=== PATIENT | female | born 1985 | race Caucasian/White ===

== ENCOUNTER 2019-11-13 10:48 | Emergency (ER) | payer OTHER, SELFPAY ==
--- NOTE | ~2019-11-13 | XR_ITS ---
XR knee LT 3V DATE: 11/13/2019 11:58 INDICATION: Anterior knee pain after running TECHNIQUE: 3 views including crosstable lateral COMPARISON: None FINDINGS: No fracture or dislocation or joint effusion. No periosteal reaction or bone destruction. N o radiopaque intra-articular loose body or chondrocalcinosis. Joint spaces are preserved. IMPRESSION: Negative Reviewed, dictated and finalized at location B. [facility] IMPRESSION: Negative
[2019-11-13 11:09] VITALS: BP 118/68; PULSE 97; RESP 14; TEMP 36.9; O2SAT 98
[2019-11-13] MEDS: IBUPROFEN 600 MG TABLET PO (12:04)
--- NOTE | 2019-11-13 12:19 | ED.LOWEXIN ---
HPI - Extremity Injury (Lower) General Chief Complaint: Extremity Injury, Lower <Vinicius Osborn PA-C - Last Filed: 11/13/19 12:26> Stated Complaint: l knee/thigh injury <JYOTI Dolan Last Filed: 11/13/19 12:26> Time Seen by Provider: 11/13/19 11:04 <Vinicius Osborn PA-C - Last Filed: 11/13/19 12:26> Source: patient <Vinicius Osborn PA-C - Last Filed: 11/13/19 12:26> Mode of arrival: ambulatory <JYOTI Dolan Last Filed: 11/13/19 12:26> Limitations: no limitations <Vinicius Osborn PA-C - Last Filed: 11/13/19 12:26> History of Present Illness HPI Narrative: Patient is a 34-year-old female who presents with left lower extremity pain noting that she was ambulating when she felt a pop around the level of the knee and has since moderate aching pain worse with activity and movement patient denies similar occurrence in the past presents per private vehicle in no distress. Pain radiates up into the thigh anteriorly <Vinicius Osborn PA-C - Last Filed: 11/13/19 12:26> Related Data Home Medications: Home Medications Medication Instructions Recorded Confirmed hydroxychloroquine 11/13/19 <JYOTI Dolan Last Filed: 11/13/19 12:26> Allergies/Adverse Reactions: Allergies Allergy/AdvReac Type Severity Reaction Status Date / Time azithromycin Allergy Unknown facial Verified 07/19/19 16:00 swelling <Vinicius Osborn PA-C - Last Filed: 11/13/19 12:26> Review of Systems Review of Systems: Narrative: CONSTITUTIONAL: Denies fever, chills, or sweats. SKIN: Denies bruising or swelling MUSCULOSKELETAL: Positive for left knee pain NEUROLOGIC: Denies numbness, tingling <Vinicius sOborn PA-C - Last Filed: 11/13/19 12:26> [facility] Social History Social History: Social History (Updated 11/13/19 @ 12:22 by Vinicius Osborn PA-C) Smoking status: Never smoker Gender identity (if verbalized by the patient): Female <JYOTI Dolan Last Filed: 11/13/19 12:26> Exam Narrative: Exam Narrative: GENERAL: Well-appearing, well-nourished, and in no acute distress. HEAD: Normocephalic, atraumatic. EYES: PERRLA and EOMI. ENT: Nares clear, no rhinorrhea or epistaxis. Mucous membranes moist. EXTREMITIES: Normal range of motion. No edema. Tenderness above the left knee with no deformities noted hip nontender SKIN: Warm, dry, no rash. NEURO: No focal deficits. Alert and oriented x3. Neurovascularly intact. Capillary refill less than 2 seconds PSYCH: Normal mood and affect. <Vinicius Osborn PA-C - Last Filed: 11/13/19 12:26> Course Course Emergency Course: Patient in the room in no distress at this time aware of case findings treatment plan and diagnosis agreeing to follow-up as directed or to return if symptoms worsen or concerns <Vinicius Osborn PA-C - Last Filed: 11/13/19 12:26> Vital Signs Vital signs: Vital Signs Temperature 36.9 C 11/13/19 11:09 Pulse Rate 97 11/13/19 11:09 Respiratory Rate 14 11/13/19 11:09 Blood Pressure 118/68 11/13/19 11:09 Pulse Oximetry 98 11/13/19 11:09 Temperature 36.9 C 11/13/19 11:09 Pulse Rate 72 11/13/19 13:29 Respiratory Rate 16 11/13/19 13:29 Blood Pressure 118/68 11/13/19 11:09 Pulse Oximetry 98 11/13/19 13:29 <JYOTI Dolan Last Filed: 11/13/19 12:26> Vital Signs Temperature 36.9 C 11/13/19 11:09 Pulse Rate 97 11/13/19 11:09 Respiratory Rate 14 11/13/19 11:09 Blood Pressure 118/68 11/13/19 11:09 Pulse Oximetry 98 11/13/19 11:09 Temperature 36.9 C 11/13/19 11:09 Pulse Rate 72 11/13/19 13:29 Respiratory Rate 16 11/13/19 13:29 Blood Pressure 118/68 11/13/19 11:09 Pulse Oximetry 98 11/13/19 13:29 <Karen Bartholomew MD - Last Filed: 11/13/19 15:57> MDM - Extremity Injury (Lower) MDM Narrative Medical decision making narrative: Patients injury or pain is co
[2019-11-13 13:29] VITALS: PULSE 72; RESP 16; O2SAT 98
== END 2019-11-13 13:29 | disposition home or self-care (01) ==
PROVIDERS: Emergency Provider Emergency Medicine
DX: M79.605 Pain in left leg (principal)
CPT/HCPCS: 73562; 99283; A9270

== ENCOUNTER 2021-07-04 08:21 | Outpatient (CLI) | payer OTHER, SELFPAY ==
[2021-07-04 08:48] LABS: Basophils Absolute Auto 0.1 K/mm3 (0.0-0.1); Basophils Percent Auto 1.1 % (0.2-1.2); Eosinophils Percent Auto 0.2 % (0-4.4); Hematocrit 40.9 % (37.0-47.0); Hemoglobin 13.3 g/dL (12.0-15.0); Immature Granulocyte Absolute 0.01 K/mm3 (0.00-0.031); Immature Granulocyte Percent A 0.2 % (0-0.5); Lymphocytes Absolute Auto 1.84 K/mm3 (0.9-3.2); Lymphocytes Percent Auto 32.2 % (18.3-44.2); Mean Corpuscular HGB Conc 32.5 g/dl (32-36); Mean Corpuscular Hemoglobin 28.2 pg (26-34); Mean Corpuscular Volume 86.8 fl (80-100); Monocytes Absolute Auto 0.4 K/mm3 (0.1-0.6); Neutrophils Absolute Auto 3.4 K/mm3 (1.3-6.7); Neutrophils Percent Auto 59.3 % (45.5-73.1); Platelet Count Result 214 k/mm3 (150-375); Red Blood Count 4.71 M/mm3 (4.2-5.4); Red Cell Distribution Width 12.9 % (11.5-14.5); White Blood Count 5.7 K/mm3 (4.5-10.0)
[2021-07-04 09:17] LABS: Cholesterol 168 mg/dL (0-200); HDL Direct 54 mg/dL; Magnesium 1.8 mg/dL (1.6-2.3); Triglycerides 85 mg/dL (<150)
[2021-07-04 09:32] LABS: LDL Cholesterol Direct 85 mg/dL
[2021-07-04 10:16] LABS: Free T4 Free Thyroxine 1.02 ng/mL (0.78-2.19); Vitamin D 25 Hydroxy 38.2 ng/mL
[2021-07-07 03:53] LABS: Thyroid Peroxidase Antibodies <1 IU/mL (<9)
== END 2021-07-04 08:22 | disposition home or self-care (01) ==
PROVIDERS: PCP Nurse Practitioner; Visit Provider Nurse Practitioner
DX: R00.0 Tachycardia, unspecified (principal); I95.9 Hypotension, unspecified; E55.9 Vitamin D deficiency, unspecified; Z13.220 Encounter for screening for lipoid disorders
CPT/HCPCS: 36415; 80061; 82306; 83735; 84439; 84443; 84481; 85025; 86376

== ENCOUNTER 2021-08-18 18:37 | Emergency (ER) | payer OTHER, SELFPAY ==
[2021-08-18 18:51] VITALS: BP 127/75; PULSE 97; RESP 18; TEMP 36.9; O2SAT 100
--- NOTE | 2021-08-18 19:15 | ED.URI ---
HPI - URI/Sore Throat General Chief Complaint: Upper Respiratory Infection Stated Complaint: throat pain Time Seen by Provider: 08/18/21 19:15 Source: patient and RN notes reviewed Mode of arrival: ambulatory Limitations: no limitations History of Present Illness HPI Narrative: 36-year-old female who works in the [employer] complains of a scratchy throat since Tuesday, 2 days ago. Has tried Benadryl and ibuprofen with no relief. History of a connective tissue disorder and takes hydrochloric when, gallbladder removed in 2009. Patient denies any fevers. No coughing or shortness of breath. No chest pain or abdominal pain. No nausea vomiting or diarrhea. MD elicited complaint: sore throat Related Data Home Medications Medication Instructions Recorded Confirmed hydroxychloroquine 11/13/19 Allergies Allergy/AdvReac Type Severity Reaction Status Date / Time azithromycin Allergy Unknown facial Verified 08/18/21 19:28 swelling Review of Systems Review of Systems: All systems reviewed & are unremarkable except as noted in HPI and below Constitutional: Constitutional: Reports no additional constitutional complaints, Denies chills and Denies fever(s) Eyes: Eyes: Reports no additional eye complaints ENT: Reports as per HPI and Reports sore throat Cardiovascular: Cardiovascular: Reports no additional cardiovascular complaints and Denies chest pain Respiratory: Respiratory: Reports no additional respiratory complaints, Denies chest congestion, Denies cough, Denies dyspnea and Denies wheezing Gastrointestinal: Gastrointestinal: Reports no additional gastrointestinal complaints, Denies abdominal pain, Denies diarrhea, Denies nausea and Denies vomiting Musculoskeletal: Musculoskeletal: Reports no additional musculoskeletal complaints and Denies back pain Integumentary/Breasts: Skin/Breast: Reports system reviewed and no additional complaints, except as docu and Denies rash Neurologic: Reports system reviewed and no additional complaints, except as documented Psychiatric: Psychiatric: Reports no additional psychiatric complaints Allergic/Immunologic: Allergic/Immunologic: Reports no additional allergic/immunologic complaints PMFSH Past Medical History Medical History (Updated 08/18/21 @ 19:45 by Tammy Muhammad) 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 There is no relevant family history pertinent to the patient complaint. Exam Const: General: healthy appearing, no acute distress and alert Nutritional Appearance: well nourished Orientation/consciousness: patient oriented x3 Limitations: no limitations HENMT: Head: normal to inspection Ears: external ears normal, TM's normal bilaterally and EAC's normal General nose exam: Normal external nose present and Normal nasal mucous membranes and turbinates present Face and sinus: normal facial exam Mouth: Yes Normal oral and palatal mucosa present Teeth and gingiva: dentition normal and gingiva normal Throat: posterior oropharynx normal, tonsils normal, uvula midline and no uvular edema Eyes: Conjunctivae: conjunctivae normal Pupils: Equal, round and reactive pupils present Neck: Neck: normal visual inspection, no lymphadenopathy and no meningeal signs Chest: Chest palpation & inspection: normal inspection of the chest Resp: Effort & Inspection: normal respiratory effort and no use of accessory muscles Auscu
== END 2021-08-18 19:41 | disposition home or self-care (01) ==
PROVIDERS: Emergency Provider Nurse Practitioner; PCP Nurse Practitioner
DX: J02.8 Acute pharyngitis due to other specified organisms (principal); L94.9 Localized connective tissue disorder, unspecified
CPT/HCPCS: 87081; 87880; 99213; G0463

== ENCOUNTER 2022-05-31 13:19 | Outpatient (CLI) | payer OTHER, SELFPAY ==
[2022-06-02 11:21] LABS: NIL 0.01 IU/mL; Quantiferon TB Plus, 1T NEGATIVE (NEGATIVE); TB2-NIL 0.01 IU/mL
== END 2022-05-31 13:20 | disposition home or self-care (01) ==
PROVIDERS: PCP Nurse Practitioner; Visit Provider Nurse Practitioner
DX: Z11.1 Encounter for screening for respiratory tuberculosis (principal)
CPT/HCPCS: 36415; 86480

== ENCOUNTER 2022-09-15 12:37 | Outpatient (CLI) | payer OTHER, SELFPAY ==
[2022-09-15 13:01] LABS: Basophils Percent Auto 0.7 % (0.2-1.2); Eosinophils Percent Auto 0.3 % (0-4.4); Hemoglobin 12.7 g/dL (12.0-15.0); Immature Granulocyte Absolute 0.02 K/mm3 (0.00-0.031); Immature Granulocyte Percent A 0.3 % (0-0.5); Lymphocytes Absolute Auto 1.66 K/mm3 (0.9-3.2); Lymphocytes Percent Auto 27.1 % (18.3-44.2); Mean Corpuscular HGB Conc 34.3 g/dl (32-36); Mean Corpuscular Hemoglobin 28.3 pg (26-34); Mean Corpuscular Volume 82.6 fl (80-100); Mean Platelet Volume 9.5 fl (7.4-10.4); Monocytes Absolute Auto 0.4 K/mm3 (0.1-0.6); Monocytes Percent Auto 6.9 % (2.6-8.5); Neutrophils Percent Auto 64.7 % (45.5-73.1); Platelet Count Result 267 k/mm3 (150-375); Red Blood Count 4.48 M/mm3 (4.2-5.4); Red Cell Distribution Width 12.5 % (11.5-14.5); White Blood Count 6.1 K/mm3 (4.5-10.0)
[2022-09-15 13:10] LABS: Alanine Aminotransferase 24 U/L (6-35); Albumin Level 4.2 g/dL (3.5-5.1); Alkaline Phosphatase 68 U/L (38-126); Anion Gap 5 mmol/L (8-16); Aspartate Amino Transferase 25 U/L (14-36); Bilirubin,Total 0.2 mg/dL (0.2-1.3); Blood Urea Nitrogen 11 mg/dL (7-17); Calcium 8.5 mg/dL (8.4-10.2); Carbon Dioxide 27 mmol/L (22-30); Chloride 108 mmol/L (98-107); Estimated Glomerular Filt Rate > 60; Glucose 94 mg/dL (65-110); Potassium 3.9 mmol/L (3.4-5.0); Sodium 140 mmol/L (137-145)
[2022-09-15 14:44] LABS: Thyroid Stimulating Hormone Reflex 0.824 uIU/mL (0.465-4.68)
[2022-09-19 19:10] LABS: EBV Nuclear Ab Interpretation Past; EBV Virus Capsid Ag IgG Ab >750.00 U/mL (<18.00); EBV Virus Capsid Ag IgM Ab <36.00 U/mL (<36.00)
== END 2022-09-15 12:38 | disposition home or self-care (01) ==
LOC: ANHLAB 12:40
PROVIDERS: PCP Nurse Practitioner; Visit Provider Nurse Practitioner
DX: Z20.828 Contact with and (suspected) exposure to other viral communicable diseases (principal); R53.83 Other fatigue
CPT/HCPCS: 36415; 80053; 84443; 85025; 86664; 86665

== ENCOUNTER 2023-09-20 13:24 | Emergency (ER) | payer OTHER, SELFPAY ==
[2023-09-20 14:27] VITALS: BP 116/70; PULSE 88; RESP 16; TEMP 36.2; O2SAT 100
--- NOTE | 2023-09-20 14:52 | ED.URI ---
HPI - URI/Sore Throat General Chief Complaint: Upper Respiratory Infection Stated Complaint: sore throat,run down feeling Time Seen by Provider: 09/20/23 14:50 History of Present Illness HPI Narrative: 38-year-old female presented for complaint of sore throat nasal congestion drainage over the past 3 days. Endorses her daughter is currently being treated for strep throat. Patient denies shortness of breath, wheezing, nausea, vomiting, diarrhea, fevers or chills. Taking occasional [id number] medication without relief. Related Data Home Medications Medication Instructions Recorded Confirmed hydroxychloroquine 200 mg tablet 200 mg PO DAILY 11/13/19 09/20/23 Allergies Allergy/AdvReac Type Severity Reaction Status Date / Time azithromycin Allergy Intermediate facial Verified 09/20/23 14:49 swelling Review of Systems Review of Systems: CONSTITUTIONAL: Denies body aches, fever, chills, or sweats. EYES: Denies visual changes, redness, or discharge. ENT: Reports rhinorrhea, congestion, sore throat denies otalgia. CARDIOVASCULAR: Denies chest pain, palpitations, or edema. RESPIRATORY: Denies dyspnea. GASTROINTESTINAL: Denies abdominal pain, nausea, vomiting, or diarrhea. SKIN: Denies rash, itching, or wounds. MUSCULOSKELETAL: Denies back pain, joint pain, or myalgia. 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 EYES: conjunctivae clear ENT: Mucous membranes moist. TMs pearly peña with normal light reflex bilaterally; no tragal tenderness. Oropharynx not erythematous without lesions. Tonsils not enlarged and without exudate. No drooling, no hoarseness, no trismus, uvula midline. No tripod positioning, hot potato voice, or soft palate swelling. NECK: Supple. No lymphadenopathy CHEST: Clear to auscultation, breath sounds equal. No respiratory distress, speaks in full sentences. HEART: Regular rate and rhythm. No murmur heard. SKIN: Warm, dry, no rash. NEURO: Alert and oriented x3. Course Course Emergency Course: Patient is aware of diagnosis, understands and agrees to treatment plan. Anticipatory guidance given. Patient agrees to follow-up as directed and is aware of reasons to seek care at the emergency department. Portions of this record may have been created with voice recognition software Level of Care: Express Care Visit Vital Signs Vital signs: Vital Signs Temperature 97.2 F L 09/20/23 14:27 Pulse Rate 88 09/20/23 14:27 Respiratory Rate 16 09/20/23 14:27 Blood Pressure 116/70 09/20/23 14:27 Pulse Oximetry 100 09/20/23 14:27 Oxygen Delivery Room Air 09/20/23 14:27 Temperature 97.2 F L 09/20/23 14:27 Pulse Rate 88 09/20/23 14:27 Respiratory Rate 16 09/20/23 14:27 Blood Pressure 116/70 09/20/23 14:27 Pulse Oximetry 100 09/20/23 14:27 Oxygen Delivery Room Air 09/20/23 14:27 MDM - URI/Sore Throat MDM Narrative Medical decision making narrative: Neg covid and strep result reviewed with pt. Advised supportive treatments. Patient is appropriate for outpatient treatment and follow-up. Differential Diagnosis Differential diagnosis: Likely upper respiratory infection, viral infection, bronchitis, influenza and pharyngitis Lab Data Labs: Lab Results 09/20/23 Range/Units 14:25 POC SARS CoV-2 Ag N
== END 2023-09-20 15:00 | disposition home or self-care (01) ==
PROVIDERS: Emergency Provider Nurse Practitioner Family; PCP Nurse Practitioner
DX: J06.9 Acute upper respiratory infection, unspecified (principal); Z20.822 Contact with and (suspected) exposure to COVID-19; L94.9 Localized connective tissue disorder, unspecified
CPT/HCPCS: 87081; 87426; 87880; 99213; C9803; G0463

== ENCOUNTER 2025-07-10 09:01 | Emergency (ER) | payer OTHER, SELFPAY ==
[2025-07-10 09:10] VITALS: BP 116/79; PULSE 82; RESP 18; TEMP 36.6; O2SAT 100
--- OUTSIDE RECORDS SUMMARY | 2025-07-10 09:24 | XMS_ITS | Encounter Summary ---
Author Organization [facility] Address [address] [place] [address] Phone Care Team Providers Care Cotton Converter Name Role Phone Franyd Hernandez DO Primary Care Provider Radha Hernandez MD Primary Care Provider [phone]- [phone] Encounter Details Date Type Department Care Team (Late st Contact Info) Description 08/15/2018 Telephone [facility] Cardiology [facility] Advanced Medicine [address]th [place] [address] [place] [address] Polina Donato, MPH Social History Tobacco Use Types Packs/Day Years Used Date Smoking Tobacco: Never Smokeless Tobacco: Never Alcohol Use Standard Drinks/Week Comments Yes 0 (1 standard drink = 0.6 oz pur e alcohol) social Comments Unknown Sex and Gender Information Value Date Recorded Sex Assigned at Not on file Legal Sex Female 1:45 PM CDT Gender Identity Female 08/09/2018 1:43 PM CDT Sexual Orientation Not on file documented as of this encounter Plan of Treatment Not on file documented as of this encounter Visit Diagnoses Not on filedocumented in this encounter Care Teams Cotton Converter Relationship Specialty Start Date End Date Frandy Hernandez DO [address] [place], [place] [id number] PCP - General 05/16/17 01/09/23 [place] [address] PCP - General Nurse Practitioner 01/10/23 documented as of this encounter
--- OUTSIDE RECORDS SUMMARY | 2025-07-10 09:24 | XMS_ITS | Clinical Summary ---
Author Organization [facility] Address [address] [place] [address] Care Team Providers Care Cafe Site Attendant Name Role Phone Radha Hernandez MD Primary Care Provider [phone]- [phone] Allergies Active Allergy Reactions Criticality Noted Date Comments Azithromycin Swelling Medium 05/30/2017 Prednisone Anxiety Low 12/21/2023 Venlafaxine Dizziness Medium 05/08/2020 Medications cetirizine (ZyrTEC) 10 mg tablet daily. Active omeprazole (PriLOSEC) 40 mg capsuleIndicatio ns:Gastroesophag eal reflux disease, esophagitis presence not specified Take 1 capsule (40 mg total) by mouth daily before dinner. 30 capsule 8 Active Additional Information Patient not taking.Reported on 01/11/2022 magnesium oxide (MAG-OX) 400 mg (241.3 mg elemental magnesium) tabletIndication s:hypomagnesemia Take 1 tablet (400 mg total) by mouth nightly. 30 tablet 11 8 Active Additional Information Patient not taking.Reported on 01/10/2023 eletriptan (RELPAX) 40 mg tabletIndication s:Migraine Take 1 tablet (40 mg total) by mouth once as needed for migraine for up to 1 dose. May repeat one time after 2 hours if needed. 18 tablet 3 8 Active Additional Information Patient not taking.Reported on 01/10/2023 riboflavin (Vitamin B-2) 100 mg tabletIndication s:Riboflavin Deficiency Take 4 tablets (400 mg total) by mouth daily. 120 tablet 3 8 Active Additional Information Patient not taking.Reported on 01/10/2023 EPINEPHrine 0.3 mg/0.3 mL auto-injection syringe Inject 0.3 mL (0.3 mg total) into the muscle as instructed as needed 8 Active azelastine 205.5 mcg (0.15 %) spray,non-aeroso l Administer 0.3 mL (2 sprays total) into each nostril 2 (two) times a day 2 Active famotidine (PEPCID) 40 mg tablet Take 40 mg by mouth daily 2 Active fexofenadine (JULIEN) 180 mg tablet Take 1 tablet (180 mg total) by mouth daily Active albuterol HFA (PROVENTIL HFA,VENTOLIN HFA,PROAIR HFA) 90 mcg/actuation inhaler Inhale 2 puffs every 6 (six) hours as needed 2 Active ergocalciferol (VITAMIN D) 50,000 unit capsule Take 1 capsule (50,000 Units total) by mouth once a week 12 capsule 3 Active ergocalciferol (VITAMIN D) 50,000 unit capsule Take 1 capsule (50,000 Units total) by mouth once a week 12 capsule 4 Active hydroxychloroqui ne (PLAQUENIL) 200 mg tablet TAKE 1 TABLET(200 MG) BY MOUTH DAILY 90 tablet 1 5 Active Active Problems Problem Noted Date Diagnosed Date Undifferentiated connective tissue disease 02/06 Surgical History Surgery Date Site/Laterality Comments CHOLECYSTECTOMY Medical History Medical History Date Comments Anxiety Migraines Family History Medical History Relation Name Comments Diabetes Father Family history of diabetes mellitus - (Added by TW Conv) Colon cancer Father's Brother Family hist ory of colon cancer - (Added by TW Conv) Relation Name Status Comments Father Father's Brother Social History Tobacco Use Types Packs/Day Years Used Date Smoking Tobacco: Never Smokeless Tobacco: Never Tobacco Cessation:Counseling Given: Not Answered Alcohol Use Standard Drinks/Week Comments Yes 0 (1 standard drink = 0.6 oz pur e alcohol) rarely AUDIT-C Answer Date Recorded Q1: How often do you have a drink containing alc ohol? Monthly or less 01/08/2025 Average Number of Drinks Not on file 025 Frequency of Binge Drinking Not on file 10/2024 Comments Unknown Sex and Gender Information Value Date Recorded Sex Assigned at Not on file Legal Sex Female 1:45 PM CDT Gender Identity Female 08/09/2018 1:43 PM CDT Sexual Orientation Not on file Obstetrics History Last Filed Vital Signs Vital Sign Reading Time Taken Comments Blood Pressure 106/75 01/08/2025 10:37 AM CDT Pulse 102 01/08/2025 10:37 AM CDT Temperature 36.7 C (98 F) 01/08/2025 10:37 AM CDT Respiratory Rate - - Oxygen Saturation 100% 01/08/2025 10: 37 AM CDT Inhaled Oxygen Concentration - - Weight 71.6 kg (157 lb 12.8 oz) 025 10:37 AM CDT Height 160 cm (5' 3) 01/08/2025 10:37 AM CDT Body Mass Index 27.95 01/08/2025 10:37 AM CDT Plan of Treatment Health Maintenance Due Date Last Done Comments Depression Screening 1986 DTaP/Tdap/Td Vaccine (1 - Tdap) 1997 Varicella Vaccines (1 of 2 - 13+ 2-dose series) 1999 Hepatitis B Screening 01/06/2004 Regular Well Visit/Exam 18-64 01/06/2004 Pneumococcal vaccine <65 (1 of 2 - PCV) 2005 Zoster Vaccine (1 of 2) 2005 HPV Vaccines (1 - 3-dose SCD M series) 2013 Cervical Cancer Screening 05/25/2023 05/25/2022 Influenza Vaccine (#1) 2025 , 08/23/2023, 07/08/2022, Additional history exists Hepatitis C Screening Completed 08/30/2017 Covid-19 Vaccine Discontinued 09/29/2021 Procedures Procedure Name Priority Date/Time Associated Diagnosis Comments HEPATITIS C ANTIBODY Routine Gen Lab 08/30/2017 2:50 PM DYNAMICS AX SOLUTION ARCHITECT from Last 3 Months or Most Recently Relevant to Health Maintenance Results * Hepatitis C antibody (08/30/2017 2:50 PM DYNAMICS AX SOLUTION ARCHITECT) Hep C Ab Nonreactive Nonreactive SHAZIA KAN Comment: Interpretive Data Positive and greyzone results should be confirmed by a molecular method. If positive or greyzone, a second separately collected sample should be submitted for Hepatitis C Virus RNA. Detection and Quantitation by Real-Time Reverse Studio Manager-PCR.Current Interpretive data was last revised on 2017. Blood specimen (specimen) 08/30/2017 2:50 PM DYNAMICS AX SOLUTION ARCHITECT 08/30/2017 6:30 PM DYNAMICS AX SOLUTION ARCHITECT us Aleksandra Mueller MD LAB MICROBIOLOGY - GENERAL ORDERABLES Edited Result - Final SHAZIA [facility] [place] [address] from Last 3 Months or Most Recently Relevant to Health Maintenance Insurance [facility] [place] [address] [facility] Care Teams Cafe Site Attendant Relationship Specialty Start Date End Date Radha Hernandez MD PCP - General Nurse Practitioner 01/10/23
--- OUTSIDE RECORDS SUMMARY | 2025-07-10 09:24 | XMS_ITS | Clinical Summary ---
Author Organization [facility] Address [address] [place] [address] Care Team Providers Care Can Piler Name Role Phone Radha [facility] Primary Care Provi juliocesar Source Comments [facility] [employer],non-owned Affiliates and Associated Physician Practices is amultiple site organization consisting of ambulatory clinics and hospital sitesin [place], [place], [place] and [place]. This disclosure is being madepursuant to the Care Everywhere program and may not contain all information available regarding this patient. Last updated 18.[facility] [employer] Allergies Active Allergy Reactions Criticality Noted Date Comments Azithromycin Angioedema High 03/06/2024 Medications * Be aware that medications may not be up to date on this document. Alwaysverify current medications with the patient. fexofenadine (Miladis Allergy) 180 MG tablet Take 1 (one) tablet by mouth once daily Active Vitamin D3 (D3 Super Strength) 50 MCG (1999 UT) capsule Take 1 (one) capsule by mouth once daily 4 Active EPINEPHrine (Epipen) 0.3 MG/0.3ML auto-injector pen Inject 0.3 mL into muscle once as needed for Anaphylaxis Active hydroxychloroqu ine (Plaquenil) 200 MG tablet Take 1 (one) tablet by mouth once daily Active norgestrel (OVRETTE) 0.075 MG tablet Take 1 (one) tablet by mouth once daily 5 Active Active Problems Problem Noted Date Diagnosed Date Undifferentiated connective tissue disease 01/27 Overview (03/07/2025): Chronic condition. Follows with rheumatology every 6 months. Has an appointment tomorrow. Take hydroxychloroquine 20 mg daily. Denies side effects with use. Her yearly eye exam is up-to-date. 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 Overview (05/30/2025): Both allergic and non-allergic rhinitis -- testing only positive to trees which are spring time pollinators but having symptoms all year round Encounters Date Type Department Care Team Description 05/30/2025 8:30 AM CDT Office Visit [facility] - Allergy [facility] [place] [address] Salvador Oliveira MD Mixed rhinitis (Primary Dx); Vocal cord dysfunction; Drug allergy 05/30/2025 Travel from Last 3 Months Social History Tobacco Use Types Packs/Day Years Used Date Smoking Tobacco: Never Smokeless Tobacco: Never Tobacco Cessation:Counseling Given: Not Answered Comments No Sex and Gender Information Value Date Recorded Sex Assigned at Not on file Legal Sex Female 4:19 PM CDT Gender Identity Not on file Sexual Orientation Not on file Last Filed Vital Signs Vital Sign Reading Time Taken Comments Blood Pressure 106/74 05/30/2025 8:11 AM CDT Pulse 91 05/30/2025 8:11 AM CDT Temperature 36.3 C (97.3 F) 05/30/2025 8:11 AM CDT Respiratory Rate 18 05/30/2025 8:11 AM CDT Oxygen Saturation 99% 05/30/2025 8:11 AM CDT Inhaled Oxygen Concentration - - Weight 72.6 kg (160 lb) 05/30/2025 8:11 AM CDT Height 160 cm (5' 3) 05/30/2025 8:11 AM CDT Body Mass Index 28.34 05/30/2025 8:11 AM CDT Plan of Treatment Upcoming Encounters Date Type Department Care Team (Late st Contact Info) Description 11/28/2025 8:30 AM DIAMOND MOUNTER Office Visit [facility] - Allergy [address] [place] [address] Salvador Oliveira MD [address] [place] [address] Health Maintenance Due Date Last Done Comments HIV SCREENING 2001 DTAP/TDAP/TD VACCINES (1 - Tdap) 2005 HEPATITIS B VACCINE (1 of 3 - 19+ 3-dose series) 2005 HPV VACCINE (1 - 3-dose SCDM series) 2013 DEPRESSION SCREENING 10/10/2024 PAP SMEAR 05/25/2025 05/25/2022, 05/25/2022 COVID-19 VACCINE ( season) 2025 09/29/2021, 12/09/2020, 11/06/2020 INFLUENZA VACCINE (#1) 2025 , 08/23/2023, 07/08/2022, Additional history exists ZOSTER VACCINE (1 of 2) 01/06/2036 HEPATITIS C SCREENING Completed 10/25/2023 HIB VACCINE Aged Out No longer eligi ble based on patient's age to complete this topic MENINGOCOCCAL (Group B) VACCINE SHARED DECISION-MAKING Aged Out No longer eligible based on patient's age to complete this topic MENINGOCOCCAL GROUPS A/C/Y/W VACCINE Aged Out No longer eligible based on patient's age to complete this topic PNEUMOCOCCAL VACCINE Aged Out No long er eligible based on patient's age to complete [place] [id number] [facility] Care Teams Can Piler Relationship Specialty Start Date End Date Radha Hernandez, NETWORK ENGINEER ADMINISTRATOR-PORTABLE CANTEEN OPERATOR [id number] [place] [id number] PCP - General Nurse Practitioner 01/15/25
[2025-07-10 09:43] LABS: EDCOVIDSCREEN Negative (Negative); EDINFLUASCREEN Negative (Negative); EDINFLUBSCREEN Negative (Negative)
--- NOTE | 2025-07-10 09:45 | ED.URI ---
HPI - URI/Sore Throat General Chief Complaint: Upper Respiratory Infection Stated Complaint: URI Time Seen by Provider: 07/10/25 09:20 Source: patient and RN notes reviewed Mode of arrival: ambulatory Limitations: no limitations History of Present Illness HPI Narrative: 40-year-old female presents Express Care complaining of upper respiratory symptoms for approximately 1 week. Patient reports cough, fevers, body aches, congestion, sinus pressure, mucopurulent sinus drainage. Patient reports symptoms are getting significantly worse. Patient said yesterday she developed loose stools but denies any nausea or vomiting. Patient denies any chest pain, difficulty breathing, chills, runny nose, earache, sore throat, or any other symptoms. Patient has history of mixed connective tissue disorder. Patient has been taking Tylenol ibuprofen to help with the pain in fevers. Related Data Home Medications ?Medication ?Instructions ?Recorded ?Confirmed ?Last Taken ?Type hydroxychloroquine 200 mg tablet 200 mg PO DAILY 11/13/19 09/20/23 Unknown History azelastine 137 mcg (0.1 %) nasal 137 mcg intranasal Q12H 03/07/25 Unknown History spray cholecalciferol (vitamin D3) 50 50 mcg PO DAILY 03/07/25 Unknown History mcg (2,000 unit) capsule fexofenadine 60 mg tablet (Miladis 60 mg PO Q12H 03/07/25 Unknown History Allergy) Allergies Allergy/AdvReac Type Severity Reaction Status Date / Time azithromycin Allergy Intermediate facial Verified 07/10/25 09:11 swelling Milk Containing Products AdvReac Mild Unknown Verified 07/10/25 09:11 (Dairy) Review of Systems Review of Systems: CONSTITUTIONAL: Positive for fevers and body aches. Negative for chills or sweats. EYES: Denies visual changes, redness, or discharge. ENT: Positive for sinus pressure, congestion. Negative for rhinorrhea, sore throat, or otalgia. CARDIOVASCULAR: Denies chest pain, palpitations, or edema. RESPIRATORY: Positive for cough. Negative for dyspnea or wheezing. GASTROINTESTINAL: Denies abdominal pain, nausea, vomiting, or diarrhea. GENITOURINARY: Denies dysuria or hematuria. SKIN: Denies rash or itching. MUSCULOSKELETAL: Denies back pain, joint pain, or myalgia. NEUROLOGIC: Denies headache, numbness, or weakness. PSYCHIATRIC: Denies anxiety or depression. All other systems reviewed are negative, except as documented in HPI. [facility] Past Medical History Medical History IBS (irritable bowel syndrome) Migraine Acid reflux Gallbladder disorder Anxiety Anemia Disorder of connective tissue and due to systemic disease Surgical History Surgical History Hx of cholecystectomy [employer] teeth removed Hx of colonoscopy Family History Family History Mother Depression Thyroid disorder Fibromuscular dysplasia Father Hypertension Diabetes mellitus Grandparent Hypertension Thyroid disorder Social History Social History Smoking status: Never smoker Alcohol intake: current Substance use: never Living arrangements: with family Occupation/Education: occupation 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 There is no relevant family history pertinent to the patient complaint. Exam Narrative: GENERAL: This is a well-nourished, well-developed adult, in no apparent distress. They are non ill-appearing, nontoxic appearing. HEAD: normocephalic, atraumatic. EYES: Sclera clear/white. Vision is grossly intact. Conjunctiva normal bilaterally. Extraocular movements intact. EARS: External ears normal, auditory canals clear and without drainage, TMs without erythema or perforation. Hearing grossly intact. NOSE: External nose normal with no obvious nasal discharge, nasal turbinates erythematous with exudate present., no rhinorrhea. Maxillary and frontal sinus tenderness to palpation. THROAT: Mucous membranes moist, posterior pharynx erythematous without exudate. Uvula is midline. Postnasal drip present. NECK: Neck supple, non-tender without lymphadenopathy, masses or thyromegaly. CARDIOVASCULAR: Regular rate and rhythm without murmurs, gallops, or rubs. RESPIRATORY: Clear to auscultation. Breath sounds equal bilaterally. No wheezes, rales, or rhonchi. SKIN: warm, Dry, intact with no suspicious lesions or rash, good texture and turgor. NEURO: awake, alert, and oriented to person, place and time. There were no obvious focal neurologic abnormalities. EXTREMITIES: No joint tenderness, effusion, or edema noted. BACK: Nontender without deformity. Course Course Emergency Course: Portions of this record may have been created with voice recognition software Level of Care: Express Care Visit Vital Signs Vital signs: Vital Signs Temperature 97.9 F 07/10/25 09:10 Pulse Rate 82 07/10/25 09:10 Respiratory Rate 18 07/10/25 09:10 Blood Pressure 116/79 07/10/25 09:10 Pulse Oximetry 100 07/10/25 09:10 Oxygen Delivery Room Air 07/10/25 09:10 Temperature 97.9 F 07/10/25 09:10 Pulse Rate 82 07/10/25 09:10 Respiratory Rate 18 07/10/25 09:10 Blood Pressure 116/79 07/10/25 09:10 Pulse Oximetry 100 07/10/25 09:10 Oxygen Delivery Room Air 07/10/25 09:10 MDM - URI/Sore Throat MDM Narrative Medical decision making narrative: Rapid COVID and flu were negative. Given patient's length of symptoms and worsening symptoms is likely she has developed a bacterial sinusitis. Will go ahead and treat her with Augmentin. Discussed physical exam findings. Advised supportive measures and signs/symptoms to go to the ER. Pt is appropriate for outpt treatment and f/u. Differential Diagnosis Differential diagnosis: Likely upper respiratory infection, sinusitis and viral infection Lab Data Attestation: I reviewed the patient's lab results. Labs: Lab Results 07/10/25 Range/Units 09:40 POC Influenza A Ag Negative (Negative) POC Influenza B Ag Negative (Negative) POC SARS CoV-2 Ag Negative (Negative) Discharge Plan Discharge Clinical Impression: Sinusitis Qualifiers: Sinusitis location: unspecified location Chronicity: acute Recurrence: non-recurrent Qualified Code(s): J01.90 - Acute sinusitis, unspecified Patient Disposition: Home Condition: Stable Instructions: Antibiotic Form, Sinusitis (ED) Additional Instructions: Your Rapid COVID and flu swabs are negative today. Take the antibiotics as directed and complete the course even if you start to feel better. You may use a Neti pot saline rinse 3 times a day with lukewarm distilled water Continue to take Tylenol or Motrin as needed for pain or fevers. Follow instructions on the bottles for dosing. Use a humidifier or vaporizer at night. Drink plenty of water. 8-10 glasses per day. Use flonase 2 times per day for 5 days then as needed Take mucinex 2 times per day and be sure to take with 8oz of water. Follow up with Primary provider in 3-5 days Please go to the ER if he develops any difficulty breathing, worsening symptoms, or any other concerns Patient Language: Ecu[place] Prescriptions: New amoxicillin-pot clavulanate 875-125 mg tablet 1 tablet PO Q12H 7 Days Qty: 14 0RF No Action cholecalciferol (vitamin D3) 50 mcg (2,000 unit) capsule 50 mcg PO DAILY fexofenadine [Miladis Allergy] 60 mg tablet 60 mg PO Q12H azelastine 137 mcg (0.1 %) spray,non-aerosol 137 mcg intranasal Q12H Rx Instructions: administer into each nostril hydroxychloroquine 200 mg tablet 200 mg PO DAILY Follow-up/Referrals: David,JAMES Martin [Primary Care Provider, Unknown] Stand Alone Forms: Work/School Release IP Time of Disposition: 09:34
== END 2025-07-10 09:40 | disposition home or self-care (01) ==
PROVIDERS: PCP Nurse Practitioner
DX: J01.90 Acute sinusitis, unspecified (principal); Z20.822 Contact with and (suspected) exposure to COVID-19; K21.9 Gastro-esophageal reflux disease without esophagitis; L94.9 Localized connective tissue disorder, unspecified
CPT/HCPCS: 87426; 87804; 99213; G0463